=== PATIENT | female | born 1955 | race Caucasian/White ===

== ENCOUNTER 2019-06-21 11:28 | Emergency (ER) | payer MEDICARE, BC ==
[2019-06-21 11:40] VITALS: BP 132/70
[2019-06-21] MEDS ORDERED: DULO60CA56 PO (11:45)
[2019-06-21] MEDS ORDERED: TRAZ150T8 PO (11:45)
[2019-06-21] MEDS ORDERED: METH-280 PO (11:45)
[2019-06-21] MEDS ORDERED: CLIN300C99 PO (11:45)
[2019-06-21] MEDS ORDERED: GABA-549 PO (11:45)
[2019-06-21] MEDS ORDERED: ROSU10TA PO (11:45)
--- NOTE | 2019-06-21 11:53 | ER Report ---
History and Physical Time Seen By MD: 11:50 Hx. of Stated Complaint: RIGHT TOOTH PAIN HPI/ROS CHIEF COMPLAINT: Dental pain HISTORY OF PRESENT ILLNESS: Patient is a 63-year-old female who is visiting from [place] here at the [facility] for patient that is admitted currently. She states that she's been having trouble with her upper right maxillary molar and is scheduled to have it pulled on this coming Saturday. She was initially seen by her dentist started on Tylenol with Codeine as well as clindamycin was feeling improved on Saturday. Symptoms have pain have worsened. She denies any fevers or chills. She is taking her pain medicine and her antibiotics as directed by the physician. But she is having no improvement so for this reason she presents to the emergency department for reevaluation Allergies: Coded Allergies: No Known Allergies (Verified Allergy, Unknown, 06/21/19) Home Meds Active Scripts Oxycodone Hcl/Acetaminophen (PERCOCET 5-325 MG TABLET) 1 Each Tablet, 1 EACH PO Q4H for PAIN, #30 TAB 0 Refills Prov:EMELI ROBISON MD 06/21/19 Reported Medications Methocarbamol (METHOCARBAMOL) 750 Mg Tablet, 750 MG PO QID 06/21/19 Duloxetine Hcl (CYMBALTA) 60 Mg Capsule.dr, 60 MG PO QDAY, #5 CAP 06/21/19 Trazodone Hcl (TRAZODONE HCL) 150 Mg Tablet, 150 MG PO QHS 06/21/19 Rosuvastatin Calcium (CRESTOR) 10 Mg Tab, 10 MG PO QDAY, #5 TAB 06/21/19 Gabapentin (GABAPENTIN) 300 Mg Capsule, 600 MG PO TID, CAPSULE 06/21/19 Clindamycin Hcl (CLINDAMYCIN HCL) 300 Mg Capsule, 300 MG PO Q6H, #40 CAPSULE 06/21/19 Past Medical/Surgical History Not significant history for complaint Hx Substance Use Disorder: No Hx Alcohol Use: No Constitutional Vital Sign - Last 24 Hours 06/21/19 11:40 Temp 98.4 Pulse 72 Resp 14 B/P (MAP) 132/70 Pulse Ox 92 O2 Delivery Room Air Physical Exam General Appearance: Alert, no distress. Eyes: Pupils equal and round no pallor or injection. ENT, Mouth: Ears: Tympanic membranes are normal. Nose: No bleeding. Mouth: Mucous membranes are moist. Patient with mild inflammation around 2nd right maxillary molar no evidence of abscess. Throat: No erythema or exudates there is no tonsillar hypertrophy and uvula is midline. Musculoskeletal: Neck is supple non tender, no adenopathy. Skin: Warm and dry, no rashes. [ ] [DIFFERENTIAL DIAGNOSIS: After history and physical exam differential diagnosis was considered for] [ ] Medical Decision Making ED Course/Re-evaluation ED Course Patient with dentalgia to the upper 2nd right maxillary molar, no evidence of infection or abscess to drain. Patient is planning on having a tooth extracted on Saturday she was prescribed Tylenol 3 which is not controlling her pain. We will give her Percocet and have her continue her clindamycin but discontinue the Tylenol No. 3. Decision to Disposition Date: Jun 21, 2019 Decision to Disposition Time: 11:58 Depart Departure Latest Vital Signs Vital Signs Date Time Temp Pulse Resp B/P (MAP) Pulse Ox O2 Delivery O2 Flow Rate FiO2 06/21/19 11:40 98.4 72 14 132/70 92 Room Air Impression: Primary Impression: Pain, dental Condition: Improved Disposition: HOME OR SELF-CARE New Scripts Oxycodone Hcl/Acetaminophen (PERCOCET 5-325 MG TABLET) 1 Each Tablet 1 EACH PO Q4H for PAIN, #30 TAB 0 Refills Prov: EMELI ROBISON MD 06/21/19 Patient Instructions: Dental Caries (DC) Additional Instructions: Discontinue use of the Tylenol 3 but continue your clindamycin as directed. You may take her Percocet initially 2 tablets for the 1st dose and then 1 tablet every 4 hours as needed for pain. EMELI ROBISON MD Jun 21, 2019 11:53
[2019-06-21] MEDS ORDERED: OXYC-865 PO (11:56)
== END 2019-06-21 12:11 | disposition home or self-care (01) ==
LOC: ER 11:32
DX: K08.89 Other specified disorders of teeth and supporting structures (principal)
CPT/HCPCS: 99281